=== PATIENT | female | born 1995 | race Caucasian/White ===

== ENCOUNTER 2017-03-29 22:33 | Emergency (ER) | payer MEDICARE, MEDICAID ==
[~2017-03-29] VITALS: Ht 177.8 cm; Wt 75.0 kg
[~2017-03-29 22:33] MED LIST: [UNRECOGNIZED DRUG - OTHER]
[2017-03-29 22:50] VITALS: BP 132/81
[2017-03-29] MEDS ORDERED: APIX2.5T PO (22:57)
[2017-03-29] MEDS ORDERED: CLON0.1T PO (22:57)
[2017-03-29] MEDS ORDERED: SODIUM CHLORIDE FLUSH 10ML SYR IVF ONE (23:00)
[2017-03-29 23:22] LABS: PATH.CAST-FLAG NOT PRESENT; SPERM-FLAG NOT PRESENT; SRC-FLAG NOT PRESENT; XTAL-FLAG NOT PRESENT; YLC-FLAG NOT PRESENT
[2017-03-29 23:24] LABS: BLOOD UREA NITROGEN 13 mg/dL (7-18)
== END 2017-03-30 00:15 | disposition left against medical advice (07) ==
LOC: ED 23:35
DX: O03.4 Incomplete spontaneous abortion without complication (principal); Z86.718 Personal history of other venous thrombosis and embolism
CPT/HCPCS: 36415; 76801; 80048; 81001; 82040; 84702; 85025; 86901; 99285

== ENCOUNTER 2017-07-30 11:53 | Emergency (ER) | payer SELFPAY ==
[~2017-07-30] VITALS: Ht 177.8 cm; Wt 75.0 kg
[~2017-07-30 11:53] MED LIST changes: +APIX2.5T PO; +CLON0.1T PO
[2017-07-30 12:31] LABS: HEMATOCRIT 43.6 % (34.6-47.8); HEMOGLOBIN 14.4 g/dL (11.7-16.4)
[2017-07-30 12:44] LABS: BLOOD UREA NITROGEN 13 mg/dL (7-18)
[2017-07-30 12:50] LABS: IS PT STATUS REG ER OR PRE ER? YES
[2017-07-30] MEDS ORDERED: LEVOFLOXACIN/PMX 750MG/150ML 150 ML IV ONE (14:00)
[2017-07-30 15:03] VITALS: BP 122/78
== END 2017-07-30 15:07 | disposition home or self-care (01) ==
LOC: ED 12:23
DX: R55 Syncope and collapse (principal); Z91.040 Latex allergy status
CPT/HCPCS: 36415; 71010; 80048; 82040; 83880; 84484; 85025; 93005; 99285

== ENCOUNTER 2017-09-28 17:56 | Emergency (ER) | payer MEDICAID, MEDICARE, OTHER ==
[~2017-09-28] VITALS: Ht 175.3 cm; Wt 74.8 kg
[2017-09-28] MEDS ORDERED: SODIUM CHLORIDE FLUSH 10ML SYR IVF ONE (18:30)
[2017-09-28 18:47] VITALS: BP 137/71
== END 2017-09-28 18:51 | disposition home or self-care (01) ==
LOC: ED 18:25
DX: K59.00 Constipation, unspecified (principal); Z90.49 Acquired absence of other specified parts of digestive tract
CPT/HCPCS: 74018; 99283

== ENCOUNTER 2017-10-29 18:06 | Emergency (ER) | payer OTHER ==
[~2017-10-29] VITALS: Ht 177.8 cm; Wt 76.7 kg
[2017-10-29 18:33] VITALS: BP 115/80
[2017-10-29 19:40] LABS: HCG UR SG 1.029 (1.003-1.030)
== END 2017-10-29 18:08 | disposition home or self-care (01) ==
LOC: ED 18:07
DX: O99.611 Diseases of the digestive system complicating pregnancy, first trimester (principal); R10.32 Left lower quadrant pain; R10.31 Right lower quadrant pain; Z3A.11 11 weeks gestation of pregnancy
CPT/HCPCS: 81025; 99282; 99283

== ENCOUNTER 2018-01-01 22:46 | Observation (INO) | payer MEDICARE, MEDICAID ==
[~2018-01-01] VITALS: Ht 177.8 cm; Wt 75.0 kg
[2018-01-02 01:37] LABS: MICROSCOPIC INDICATED
[2018-01-02 01:46] LABS: CULTURE INDICATED? NO
[2018-01-02 02:02] LABS: AMPHETAMINE SCREEN, URINE Positive (Negative); BARBITURATE SCREEN, URINE Negative (Negative); BENZODIAZEPINE SCREEN, URINE Negative (Negative); CANNABINOID SCREEN, URINE Negative (Negative); COCAINE SCREEN, URINE Negative (Negative); METHADONE SCREEN, URINE Negative (Negative); OPIATE SCREEN, URINE Positive (Negative)
== END 2018-01-02 02:15 | disposition home or self-care (01) ==
LOC: LDOP 22:46 → LDIP 01-02 00:47
PROVIDERS: ADMIT Obstetrics & Gynecology; ATTEND Obstetrics & Gynecology
DX: O26.892 Other specified pregnancy related conditions, second trimester (principal); R10.9 Unspecified abdominal pain; Z79.899 Other long term (current) drug therapy; Z3A.20 20 weeks gestation of pregnancy
CPT/HCPCS: 80307; 81001; G0378

== ENCOUNTER 2018-01-04 14:47 | Outpatient (CLI) | payer MEDICARE, MEDICAID ==
[~2018-01-04] VITALS: Ht 177.8 cm; Wt 77.0 kg
[2018-01-04 15:28] VITALS: BP 125/75
[2018-01-04 15:32] LABS: MICROSCOPIC INDICATED
[2018-01-04 15:41] LABS: AMPHETAMINE SCREEN, URINE Positive (Negative); BARBITURATE SCREEN, URINE Negative (Negative); BENZODIAZEPINE SCREEN, URINE Negative (Negative); CANNABINOID SCREEN, URINE Negative (Negative); COCAINE SCREEN, URINE Negative (Negative); METHADONE SCREEN, URINE Negative (Negative); OPIATE SCREEN, URINE Positive (Negative)
== END 2018-01-04 16:56 | disposition home or self-care (01) ==
LOC: LDOP 14:47
PROVIDERS: ATTEND Obstetrics & Gynecology
DX: O42.912 Preterm premature rupture of membranes, unspecified as to length of time between rupture and onset of labor, second trimester (principal); O99.512 Diseases of the respiratory system complicating pregnancy, second trimester; J45.909 Unspecified asthma, uncomplicated; Z3A.21 21 weeks gestation of pregnancy; F10.10 Alcohol abuse, uncomplicated
CPT/HCPCS: 59025; 80307; 81001; 84112; 87086; 99211; G0463

== ENCOUNTER 2018-01-17 17:28 | Emergency (ER) | payer MEDICARE, MEDICAID ==
[~2018-01-17] VITALS: Ht 177.8 cm; Wt 81.5 kg
[2018-01-17 17:30] VITALS: BP 122/79
== END 2018-01-17 19:07 | disposition home or self-care (01) ==
LOC: ED 18:40
DX: K04.7 Periapical abscess without sinus (principal); K02.9 Dental caries, unspecified; J02.9 Acute pharyngitis, unspecified; F31.9 Bipolar disorder, unspecified; Z86.718 Personal history of other venous thrombosis and embolism
CPT/HCPCS: 87081; 87880; 99284

== ENCOUNTER 2018-02-09 23:46 | Inpatient (IN) | payer MEDICARE, MEDICAID ==
[~2018-02-09] VITALS: Ht 177.8 cm; Wt 81.0 kg
[2018-02-10] MEDS ORDERED: LACTATED RINGERS 1,000 ML IV SCH (00:23)
[2018-02-10] MEDS ORDERED: D5%-LACTATED RINGERS 1,000 ML IV SCH (00:23)
[2018-02-10] MEDS ORDERED: OXYTOCIN 30U/ 0.9% NaCL 500ML 500 ML IV ONE (00:23)
[2018-02-10] MEDS ORDERED: OXYTOCIN 30U/ 0.9% NaCL 500ML 500 ML IV PRN ×2 (00:23)
[2018-02-10] MEDS ORDERED: ACETAMINOPHEN 325 MG TABLET PO PRN (00:30)
[2018-02-10] MEDS ORDERED: DIPHENHYDRAMINE 50 MG CAPSULE PO PRN (00:30)
[2018-02-10] MEDS ORDERED: ZOLPIDEM 10MG TABLET PO PRN (00:30)
[2018-02-10] MEDS ORDERED: ONDANSETRON 2MG/ML, 2ML IVPush PRN (00:30)
[2018-02-10] MEDS ORDERED: METOCLOPRAMIDE 5 MG/ML, 2ML IVPush PRN (00:30)
[2018-02-10] MEDS ORDERED: CALCIUM CARBONATE 500 MG TAB.CHEW PO PRN (00:30)
[2018-02-10] MEDS ORDERED: OXYcodone/APAP 10/325MG TABLET PO PRN (00:30)
[2018-02-10] MEDS ORDERED: FENTANYL PF 100 MCG/2ML IVPush PRN ×2 (00:30)
[2018-02-10] MEDS ORDERED: SODIUM CITRATE/CITRIC ACID 30 ML UDC PO PRN (00:30)
[2018-02-10] MEDS ORDERED: DIPHENHYDRAMINE 25 MG CAPSULE PO PRN (01:30)
[2018-02-10] MEDS ORDERED: PLEASE ENTER HEIGHT AND WEIGHT MC SCH (01:30)
[2018-02-10] MEDS ORDERED: DIPHENHYDRAMINE 25 MG CAPSULE ONE (02:45)
[2018-02-10] MEDS ORDERED: QUETIAPINE 200 MG TABLET PO SCH (21:00)
[2018-02-10] MEDS ORDERED: DOXEPIN 100 MG CAPSULE PO SCH (21:00)
== END 2018-02-10 09:33 | disposition left against medical advice (07) | DRG 781 ==
LOC: LDOP 23:46 → LDIP 23:50
PROVIDERS: ADMIT Obstetrics & Gynecology; ATTEND Obstetrics & Gynecology
DX: O42.912 Preterm premature rupture of membranes, unspecified as to length of time between rupture and onset of labor, second trimester (principal); O99.342 Other mental disorders complicating pregnancy, second trimester; F31.9 Bipolar disorder, unspecified; Z53.21 Procedure and treatment not carried out due to patient leaving prior to being seen by health care provider; O99.512 Diseases of the respiratory system complicating pregnancy, second trimester; J45.909 Unspecified asthma, uncomplicated; Z3A.26 26 weeks gestation of pregnancy; Z86.718 Personal history of other venous thrombosis and embolism; Z91.19 Patient's noncompliance with other medical treatment and regimen
CPT/HCPCS: 84112; J7120; Q0163

== ENCOUNTER 2018-05-30 16:40 | Emergency (ER) | payer MEDICARE, MEDICAID ==
[~2018-05-30] VITALS: Ht 177.8 cm; Wt 86.5 kg
[2018-05-30 16:48] VITALS: BP 131/87
== END 2018-05-30 17:40 | disposition home or self-care (01) ==
LOC: ED 17:09
DX: J02.9 Acute pharyngitis, unspecified (principal); K08.89 Other specified disorders of teeth and supporting structures; F41.1 Generalized anxiety disorder; Z90.49 Acquired absence of other specified parts of digestive tract; F31.9 Bipolar disorder, unspecified; Z88.6 Allergy status to analgesic agent; Z88.1 Allergy status to other antibiotic agents
CPT/HCPCS: 99283

== ENCOUNTER 2018-10-02 08:01 | Emergency (ER) | payer MEDICARE, MEDICAID ==
[~2018-10-02] VITALS: Ht 177.8 cm; Wt 87.0 kg
[~2018-10-02 08:01] MED LIST changes: -CLON0.1T PO; +CLON0.1T22 PO
[2018-10-02 08:13] VITALS: BP 122/74
[2018-10-02] MEDS ORDERED: HYDROcodone/APAP 5/325 TABLET ONE (08:42)
[2018-10-02] MEDS ORDERED: KETOROLAC 30 MG/1 ML ONE (08:42)
--- NOTE | 2018-10-02 08:49 | NUR ---
REPORT FROM KSENIA PETERS. ASSUMED CARE OF PATIENT AT THIS TIME.
[2018-10-02] MEDS ORDERED: HYDROcodone/APAP 5/325 TABLET PO ONE (09:00)
[2018-10-02] MEDS ORDERED: IBUPROFEN 200 MG TABLET PO ONE (09:00)
--- NOTE | 2018-10-02 09:41 | NUR ---
Patient/Caregiver given discharge instructions and they have confirmed that they understand the instructions. Patient ambulatory with steady gait. Addendum: 10/02/18 at 0942 by CHRIS FAMILY TO DRIVE PATIENT HOME FOR SAFE DC.
== END 2018-10-02 09:43 | disposition home or self-care (01) ==
LOC: ED 09:30
DX: S39.012A Strain of muscle, fascia and tendon of lower back, initial encounter (principal); F41.1 Generalized anxiety disorder; F32.9 Major depressive disorder, single episode, unspecified; Z90.49 Acquired absence of other specified parts of digestive tract; X58.XXXA Exposure to other specified factors, initial encounter; Y93.89 Activity, other specified; Y92.89 Other specified places as the place of occurrence of the external cause; Y99.8 Other external cause status
CPT/HCPCS: 72220; 99283

== ENCOUNTER 2018-10-09 20:01 | Emergency (ER) | payer MEDICARE, MEDICAID ==
[~2018-10-09] VITALS: Ht 177.8 cm; Wt 80.0 kg
--- NOTE | 2018-10-09 21:03 | NUR ---
PT TO ROOM FROM LOBBY AT THIS TIME.
--- NOTE | 2018-10-09 21:04 | NUR ---
AMBULATORY TO ED ROOM 27 W/ STEADY GAIT.
--- NOTE | 2018-10-09 21:08 | NUR ---
PT A&OX4, RESP EVEN & UNLABORED, SPEECH CLEAR, SKIN WNL. C/O RLQ RADIATING TO RT FLANK. STARTED "A FEW HOURS AGO". IBUPROFEN 600MG AT 1800. + NAUSEA. DENIES VOMITING, DIARRHEA. LAST BM: 2 DAYS AGO "I'VE BEEN TAKING DUCOLAX AND MIRALAX AND THEY HAVEN'T DONE ANYTHING" LAST DOSE OF STOOL SOFTENER - DULCOLAX "AROUND 5:30" LAST ORAL INTAKE: 1800 TODAY. LMP: UNK. CURRENTLY : 7 WEEKS, 5 DAYS (PER PT'S FRIEND, SALMA)
[2018-10-09] MEDS ORDERED: OXYC1TAB8 PO (21:21)
[2018-10-09] MEDS ORDERED: ZOLP10TA5 PO (21:21)
[2018-10-09] MEDS ORDERED: ONDA4TAB13 PO (21:21)
[2018-10-09] MEDS ORDERED: IBUP-1222 PO (21:21)
[2018-10-09] MEDS ORDERED: DOXE100C PO (21:21)
[2018-10-09] MEDS ORDERED: METH750T2 PO (21:21)
--- NOTE | 2018-10-09 21:28 | NUR ---
URINE SPECIMEN (CLOUDY YELLOW) TUBED TO LAB
--- NOTE | 2018-10-09 22:04 | NUR ---
CALL FROM JASE, FINANCE OFFICER. PER JASE, URINE TEST WAS MARKED COMPLETE AND IT ISN'T. SHE WILL REORDER THE TEST AND LIST THE RESULTS.
--- NOTE | 2018-10-09 22:18 | NUR ---
LAB BS FOR RE-DRAW. PT REFUSING TO SIT UP.
[2018-10-09 22:19] LABS: MICROSCOPIC INDICATED
[2018-10-09 22:28] LABS: CULTURE INDICATED? YES
[2018-10-09 22:32] LABS: BASOPHILS % (AUTO) 0 % (0-1); EOSINOPHILS # (AUTO) 0.08 x10^3/uL (0-0.4); EOSINOPHILS % (AUTO) 1 % (1-7); LYMPHOCYTES # (AUTO) 1.07 x10^3/uL (1-3.4); LYMPHOCYTES % (AUTO) 12 % (22-44); MD NO; MEAN CORPUSCULAR HGB CONC 33.7 g/dL (32.4-35.8); MEAN PLATELET VOLUME 8.4 fL (7.4-10.4); MONOCYTES # (AUTO) 0.54 x10^3/uL (0.2-0.8); MONOCYTES % (AUTO) 6 % (2-9); NEUTROPHILS % (AUTO) 82 % (42-75); PLATELET COUNT 250 x10^3/uL (130-400); RED BLOOD COUNT 4.69 x10^6/uL (3.82-5.3); RED CELL DISTRIBUTION WIDTH 13.1 % (9.6-15.2)
[2018-10-09 22:45] LABS: ALBUMIN 3.8 g/dL (3.4-5.0); ANION GAP 7 mmol/L (5-15); CALCIUM 8.5 mg/dL (8.5-10.1); CHLORIDE 108 mmol/L (98-107); CREATININE 0.45 mg/dL (0.55-1.02)
--- NOTE | 2018-10-09 22:51 | NUR ---
PT AMBULATORY TO & FROM BR W/OUT INCIDENT; GAIT STEADY.
--- NOTE | 2018-10-10 00:01 | NUR ---
pt resting in bed, vss, awaiting MRI for r/o appy
--- NOTE | 2018-10-10 01:43 | NUR ---
PT RESTING IN BED AWAITING MRI, VSS
--- NOTE | 2018-10-10 01:53 | NUR ---
PT TO MRI.
--- NOTE | 2018-10-10 02:36 | NUR ---
PT RESTING IN BED, NO COMPLAINTS AT THIS TIME, VSS
[2018-10-10 04:17] VITALS: BP 112/65
--- NOTE | 2018-10-10 04:20 | NUR ---
Patient/Caregiver given discharge instructions and they have confirmed that they understand the instructions. Patient ambulatory with steady gait.
== END 2018-10-10 04:21 | disposition home or self-care (01) ==
LOC: ED 23:09
DX: O34.81 Maternal care for other abnormalities of pelvic organs, first trimester (principal); N83.291 Other ovarian cyst, right side; Z3A.01 Less than 8 weeks gestation of pregnancy; F41.1 Generalized anxiety disorder; F31.9 Bipolar disorder, unspecified; Z90.49 Acquired absence of other specified parts of digestive tract; Z86.718 Personal history of other venous thrombosis and embolism
CPT/HCPCS: 36415; 74181; 76801; 80048; 81001; 82040; 84702; 85025; 87086; 99284

== ENCOUNTER 2020-04-18 06:31 | Emergency (ER) | payer MEDICARE, MEDICAID ==
[~2020-04-18] VITALS: Ht 175.3 cm; Wt 78.0 kg
[~2020-04-18 06:31] MED LIST changes: +DOXE100C PO; +IBUP-1222 PO; +METH750T2 PO; +ONDA4TAB13 PO; +OXYC1TAB8 PO; +ZOLP10TA5 PO
--- NOTE | 2020-04-18 06:47 | NUR ---
PT BIB [facility] AFTER 2 WITNESSED SEIZURE EPISODES AFTER WORK. PT SEIZURES APPROXIMATELY 5-10 SECONDS EACH WITH A BRIEF PAUSE IN BETWEEN WHERE PATIENT DID NOT REGAIN AWARENESS. AFTER SECOND SEIZURE PT CAME BACK AROUND TO ANOx3 WITH FULL REGAIN OF ANOx4 WITHIN THE NEXT SHORT WHILE. PT HAS A HX OF SEIZURES BUT HASNT HAD ONE IN A FEW YEARS, DENIES HEAD TRAUMA, DENIES DRUG OR ETOH USE. PT DENIES LOSS OF BOWEL OR BLADDER DURING EPISODES. GROSS NEURO INTACT PT PLACED ON BP/SPO2 MONITORING. TERRELL. ROSEMARIE.
--- NOTE | 2020-04-18 06:53 | NUR ---
REPORT TO LATONIA MCCORMACK, PT CARE TO BE TRANSFERRED AT THIS TIME.
[2020-04-18] MEDS ORDERED: SODIUM CHLORIDE FLUSH 10ML SYR IVF ONE (07:00)
[2020-04-18 07:33] LABS: BASOPHILS # (AUTO) 0.04 x10^3/uL (0-0.1); BASOPHILS % (AUTO) 1 % (0-1); EOSINOPHILS # (AUTO) 0.04 x10^3/uL (0-0.4); EOSINOPHILS % (AUTO) 1 % (1-7); LYMPHOCYTES % (AUTO) 24 % (22-44); MD NO; MEAN CORPUSCULAR HEMOGLOBIN 29.1 pg (27.0-34.8); MEAN CORPUSCULAR HGB CONC 32.4 g/dL (32.4-35.8); MEAN CORPUSCULAR VOLUME 89.8 fL (80-100); MONOCYTES # (AUTO) 0.36 x10^3/uL (0.2-0.8); MONOCYTES % (AUTO) 6 % (2-9); NEUTROPHILS # (AUTO) 3.92 x10^3/uL (1.8-6.8); NEUTROPHILS % (AUTO) 68 % (42-75); PLATELET COUNT 226 x10^3/uL (130-400); RED BLOOD COUNT 4.86 x10^6/uL (3.82-5.3); RED CELL DISTRIBUTION WIDTH 13.4 % (9.6-15.2)
[2020-04-18 07:41] LABS: CALCIUM 8.5 mg/dL (8.5-10.1); CREATININE 0.65 mg/dL (0.55-1.02)
[2020-04-18 07:46] LABS: ANION GAP 5 mmol/L (5-15); CHLORIDE 110 mmol/L (98-107)
[2020-04-18 08:15] VITALS: BP 114/63
--- NOTE | 2020-04-18 08:15 | NUR ---
pt resting in gurney with mother at bedside. urine sample sent to lab. pt fatigued and photophobic but states she feels better, AOx4 at this time. call light within reach
[2020-04-18 08:54] LABS: MICROSCOPIC AUTO
== END 2020-04-18 09:48 | disposition home or self-care (01) ==
LOC: ED 07:38
DX: G40.909 Epilepsy, unspecified, not intractable, without status epilepticus (principal); N30.00 Acute cystitis without hematuria; R51 Headache; R94.31 Abnormal electrocardiogram [ECG] [EKG]; F17.200 Nicotine dependence, unspecified, uncomplicated; J45.909 Unspecified asthma, uncomplicated; Z86.718 Personal history of other venous thrombosis and embolism; Z90.49 Acquired absence of other specified parts of digestive tract
CPT/HCPCS: 36415; 70450; 71045; 80048; 80156; 81001; 82040; 85025; 87086; 93005; 99285

== ENCOUNTER 2020-06-17 13:38 | Emergency (ER) | payer MEDICARE, MEDICAID ==
[~2020-06-17] VITALS: Ht 175.3 cm; Wt 72.6 kg
[2020-06-17 14:45] LABS: BASOPHILS % (AUTO) 0 % (0-1); EOSINOPHILS % (AUTO) 1 % (1-7); LYMPHOCYTES % (AUTO) 34 % (22-44); MEAN CORPUSCULAR HGB CONC 33.3 g/dL (32.4-35.8); MEAN PLATELET VOLUME 7.7 fL (7.4-10.4); MONOCYTES % (AUTO) 9 % (2-9); NEUTROPHILS % (AUTO) 57 % (42-75); PLATELET COUNT 265 x10^3/uL (130-400); RED BLOOD COUNT 4.43 x10^6/uL (3.82-5.3); RED CELL DISTRIBUTION WIDTH 13.1 % (9.6-15.2)
[2020-06-17 14:49] LABS: ALBUMIN 4.2 g/dL (3.4-5.0); ANION GAP 5 mmol/L (5-15); CALCIUM 8.7 mg/dL (8.5-10.1); CHLORIDE 106 mmol/L (98-107)
[2020-06-17 14:55] LABS: MD NO
[2020-06-17 14:56] LABS: ALANINE AMINOTRANSFERASE 16 U/L (12-78); ALKALINE PHOSPHATASE 54 U/L (45-117); BILIRUBIN,TOTAL 0.3 mg/dL (0.2-1.0); CREATININE 0.68 mg/dL (0.55-1.02); TOTAL PROTEIN 7.2 g/dL (6.4-8.2)
--- NOTE | 2020-06-17 15:04 | NUR ---
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
--- NOTE | 2020-06-17 15:20 | NUR ---
pt presents to ed with RLQ abd pain with rebound tenderness. Hx of maryanne. NAD noted at this time. Aware of need for UA. Father at bedside. Awaiting ERMD eval.
--- NOTE | 2020-06-17 15:24 | NUR ---
PT AMBULATES WELL TO BATHROOM AND BACK TO ROOM INDEPENDENTLY. UA PROVIDED AND SENT TO LAB.
[2020-06-17 16:06] LABS: MICROSCOPIC INDICATED
--- NOTE | 2020-06-17 16:38 | NUR ---
PT RETURNED FROM US. NAD NOTED AT THIS TIME. PT CHART UP FOR RECHECK. FATHER REMAINS AT BEDSIDE.
--- NOTE | 2020-06-17 16:53 | NUR ---
ERMD IN TO REASSESS AND DISCUSS FURTHER OPTIONS WITH PT. AWAITING CT IMAGING. NAD NOTED AT THIS TIME.
--- NOTE | 2020-06-17 17:13 | NUR ---
PT TAKEN TO CT AT THIS TIME.
[2020-06-17 18:06] VITALS: BP 115/62
== END 2020-06-17 18:07 | disposition home or self-care (01) ==
LOC: ED 16:47
DX: N30.00 Acute cystitis without hematuria (principal); R10.31 Right lower quadrant pain; R10.2 Pelvic and perineal pain; J45.909 Unspecified asthma, uncomplicated; G40.909 Epilepsy, unspecified, not intractable, without status epilepticus; Z90.49 Acquired absence of other specified parts of digestive tract; Z86.718 Personal history of other venous thrombosis and embolism
CPT/HCPCS: 36415; 74176; 76830; 80053; 81001; 83690; 84703; 85025; 87086; 99285

== ENCOUNTER 2020-08-17 17:22 | Emergency (ER) | payer MEDICAID, MEDICARE ==
[~2020-08-17] VITALS: Ht 175.3 cm; Wt 73.0 kg
[2020-08-17] MEDS ORDERED: SODIUM CHLORIDE 0.9% 1,000ML IVBOLUS ONE (17:30)
--- NOTE | 2020-08-17 17:45 | NUR ---
CODE 250 CALLED IN ER ENTRANCE D/T PT HAVING SEIZURE IN PARENTS CARE. PER MOM REPORT PT HAS HAD 4 SEIZURES IN THE PAST HOUR. HX OF SEZIURES. PT AWAKE, ALERT, AND ORIENTED. PT ANSWERING QUESTIONS APPROPRIATELY.
--- NOTE | 2020-08-17 17:47 | NUR ---
PT HAVING ANOTHER SEIZURE. RN AND TECH PLACED PT ON SIDE. RN TO INFORM PROVIDER. TECH STARTING IV.
[2020-08-17] MEDS ORDERED: LORazepam 2 MG/ML, 1ML ONE (17:50)
--- NOTE | 2020-08-17 17:51 | NUR ---
RN INFORMED HOPS FARMWORKER THAT PT HAD A WITNESSED SEIZURE. HOPS FARMWORKER TO PUT IN ORDERS FOR MEDICATION.
--- NOTE | 2020-08-17 17:53 | NUR ---
ERMD AT BEDSIDE EVALUATING PT. ERMD WOULD LIKE RN TO ADMINISTER 1MG OF ATIVAN AT THIS TIME. MOM AT BEDSIDE.
[2020-08-17] MEDS ORDERED: LORazepam 2 MG/ML, 1ML IVPush ONE ×2 (18:00)
[2020-08-17] MEDS ORDERED: CARB200T13 PO (18:12)
[2020-08-17] MEDS ORDERED: CARBAMAZEPINE 200 MG TABLET ONE (18:16)
--- NOTE | 2020-08-17 18:19 | NUR ---
RN ADMINISTERED HOME DOSE OF SEIZURE MEDICATION PER EMAR.
[2020-08-17 18:21] LABS: ALANINE AMINOTRANSFERASE 21 U/L (12-78); ALBUMIN 4.3 g/dL (3.4-5.0); ANION GAP 5 mmol/L (5-15); BASOPHILS % (AUTO) 0 % (0-1); CHLORIDE 107 mmol/L (98-107); CREATININE 0.68 mg/dL (0.55-1.02); EOSINOPHILS % (AUTO) 1 % (1-7); LYMPHOCYTES % (AUTO) 31 % (22-44); MEAN CORPUSCULAR HEMOGLOBIN 30.5 pg (27.0-34.8); MEAN CORPUSCULAR HGB CONC 34.3 g/dL (32.4-35.8); MEAN PLATELET VOLUME 7.9 fL (7.4-10.4); MONOCYTES % (AUTO) 8 % (2-9); NEUTROPHILS % (AUTO) 60 % (42-75); PLATELET COUNT 298 x10^3/uL (130-400); RED CELL DISTRIBUTION WIDTH 12.6 % (9.6-15.2)
[2020-08-17 18:22] LABS: MD NO
[2020-08-17 18:24] LABS: ALKALINE PHOSPHATASE 60 U/L (45-117); BILIRUBIN,TOTAL 0.3 mg/dL (0.2-1.0); TOTAL PROTEIN 8.1 g/dL (6.4-8.2)
[2020-08-17] MEDS ORDERED: SODIUM CHLORIDE FLUSH 10ML SYR IVF ONE (18:30)
[2020-08-17] MEDS ORDERED: CARBAMAZEPINE 200 MG TABLET PO ONE (18:30)
[2020-08-17 18:54] VITALS: BP 125/74
--- NOTE | 2020-08-17 18:56 | NUR ---
First contact with patient for dc. DC papers given, pt and family verbalize understanding of instruct and ful. To return to ER if worse or concerns.
== END 2020-08-17 19:09 | disposition home or self-care (01) ==
LOC: ED 18:35
DX: R56.9 Unspecified convulsions (principal); R94.31 Abnormal electrocardiogram [ECG] [EKG]; R55 Syncope and collapse; J45.909 Unspecified asthma, uncomplicated; Z86.718 Personal history of other venous thrombosis and embolism
CPT/HCPCS: 80053; 82962; 85025; 93005; 96361; 96374; 99284; J2060; J7030

== ENCOUNTER 2020-09-06 11:23 | Emergency (ER) | payer MEDICARE, MEDICAID ==
[~2020-09-06] VITALS: Ht 175.3 cm; Wt 71.5 kg
[~2020-09-06 11:23] MED LIST changes: +CARB200T13 PO
[2020-09-06] MEDS ORDERED: DEXAMETHASONE 4 MG TABLET ONE (11:47)
[2020-09-06] MEDS ORDERED: SODIUM CHLORIDE 0.9% 1,000ML IVBOLUS ONE (12:00)
[2020-09-06] MEDS ORDERED: DEXAMETHASONE 4 MG/ML, 1ML PO ONE (12:00)
--- NOTE | 2020-09-06 12:04 | NUR ---
PT UPRIGHT ON GURNEY AWAKE WITH C/O THROAT PAIN WHEN TALKING- MEDICATED PER EMAR, RESPONDS TO STAFF APPROP, COMFORT MEASURES PROVIDED, CALL LIGHT WITHIN REACH.
[2020-09-06 12:19] LABS: BASOPHILS % (AUTO) 0 % (0-1); EOSINOPHILS % (AUTO) 3 % (1-7); LYMPHOCYTES % (AUTO) 26 % (22-44); MEAN CORPUSCULAR HEMOGLOBIN 30.1 pg (27.0-34.8); MEAN CORPUSCULAR HGB CONC 33.5 g/dL (32.4-35.8); MEAN PLATELET VOLUME 7.6 fL (7.4-10.4); MONOCYTES % (AUTO) 14 % (2-9); NEUTROPHILS % (AUTO) 57 % (42-75); PLATELET COUNT 216 x10^3/uL (130-400); RED BLOOD COUNT 4.58 x10^6/uL (3.82-5.3)
[2020-09-06 12:20] LABS: MD NO
[2020-09-06 12:30] LABS: ALBUMIN 3.8 g/dL (3.4-5.0); CALCIUM 8.6 mg/dL (8.5-10.1)
[2020-09-06 12:31] LABS: CREATININE 0.64 mg/dL (0.55-1.02)
[2020-09-06 12:49] LABS: CHLORIDE 108 mmol/L (98-107)
[2020-09-06 12:51] LABS: ANION GAP 2 mmol/L (5-15)
--- NOTE | 2020-09-06 13:40 | NUR ---
RECEIVED REPORT FROM SEGUN MCCORMACK PROVIDER AT BEDSIDE
[2020-09-06] MEDS ORDERED: KETOROLAC 30 MG/1 ML ONE (13:47)
[2020-09-06] MEDS ORDERED: KETOROLAC 30 MG/1 ML IM ONE (14:00)
[2020-09-06 14:18] VITALS: BP 101/54
--- NOTE | 2020-09-06 14:20 | NUR ---
Patient/Caregiver given discharge instructions and they have confirmed that they understand the instructions. Patient ambulatory with steady gait.
== END 2020-09-06 14:31 | disposition home or self-care (01) ==
LOC: ED 14:08
DX: L04.0 Acute lymphadenitis of face, head and neck (principal); J02.9 Acute pharyngitis, unspecified; M54.2 Cervicalgia; R00.0 Tachycardia, unspecified; J45.909 Unspecified asthma, uncomplicated
CPT/HCPCS: 36415; 76536; 80048; 82040; 85025; 87081; 87880; 96360; 96372; 99284; J1100; J1885; J7030